=== PATIENT | female | born 1985 | race Caucasian/White ===

== ENCOUNTER 2017-06-11 13:40 | Emergency (ER) | payer OTHER ==
[2017-06-11] MEDS ORDERED: DIAZEPAM 5 MG/ML 1 ML SYR IVP ONE (14:13)
[2017-06-11] MEDS ORDERED: LIDOCAINE 4%/MENTHOL 1% PATCH TD ONE (14:13)
[2017-06-11] MEDS ORDERED: KETOROLAC 15 MG/1 ML SDV IVP ONE (14:13)
[2017-06-11] MEDS ORDERED: DEXAMETHASONE 4 MG/ML VIAL IVP ONE (14:13)
--- NOTE | 2017-06-11 14:15 | EDPHY ---
H & P Stated Complaint: low back pain Time Seen by Provider: 06/11/17 13:54 HPI/ROS: CHIEF COMPLAINT: New low back pain, new radiculopathy HISTORY OF PRESENT ILLNESS: 31-year-old female with prior history of low back pain, L5-S1 herniation diagnosis several years ago, states that she has been feeling well overall, has been asymptomatic. Yesterday however she was walking and stepped on incongruent the sidewalk and felt immediate midline lumbar pain with new onset bilateral lower extremity radiculopathy. No incontinence. No retention. No saddle anesthesia no footdrop. No direct trauma or fall. REVIEW OF SYSTEMS: A ten point review of systems was performed and is negative with the exception of the items mentioned in the HPI PAST MEDICAL & SURGICAL HISTORY: Prior low back pain history SOCIAL HISTORY:Student PHYSICAL EXAM (Prior to examination, patient consented to physical exam, hands were washed and my usual and customary physical exam procedures followed) 1) GENERAL: Well-developed, well-nourished, alert and oriented. Moving in a left lateral recumbent position. Appears to be in no acute distress if she is not moving however appears to be quite comfortable she is asked to move. 2) HEAD: Normocephalic, atraumatic 3) HEENT: Pupils equal, round, reactive to light bilaterally. Sclera anicteric. Nasopharynx, oropharynx, clear, no lesions. 4) NECK: Full range of motion, no meningeal signs. 5) LUNGS: Clear auscultation bilaterally, no wheezes, no rhonchi, no retractions. 6) HEART: Regular rate and rhythm, no murmur, no heave, no gallop. 7) ABDOMEN: No guarding, no rebound, no focal tenderness, negative McBurney's, negative Gray's, negative Rovsing's, negative peritoneal sign, 8) MUSCULOSKELETAL: Moving all extremities, no focal areas of tenderness, no obvious trauma. No peripheral edema or discoloration. 9) BACK:. No CVA tenderness, no midline vertebral tenderness, no fluctuance, no step-off, no obvious trauma, no visual or palpable abnormality. Patella, Achilles reflexes intact to bilateral strength 5/5 . positive straight leg lift test bilaterally. 10) SKIN: No rash, no petechiae. 11) NEURO: Awake, alert, and oriented to person, place and time. Answers questions appropriately. There were no obvious focal neurologic abnormalities. No cerebellar dysfunction. Normal steady gait. Upper and lower extremities bilaterally with strength 5 / 5, reflexes 2+.. DIFFERENTIAL DIAGNOSIS: In no particular order, including but not limited to, fracture, sprain/strain, cauda equina, spinal infectious etiology. - Personal History LMP (Females 10-55): Over 28 Days Ago Current Tetanus/Diphtheria Vaccine: Unsure Current Tetanus Diphtheria and Acellular Pertussis (TDAP): Unsure - Medical/Surgical History Hx Asthma: No Hx Chronic Respiratory Disease: No Hx Diabetes: No Hx Cardiac Disease: No Hx Renal Disease: No Hx Cirrhosis: No Hx Alcoholism: No Hx HIV/AIDS: No Hx Splenectomy or Spleen Trauma: No Other PMH: L5-S1 disc injury, HTN, - Social History Smoking Status: Never smoked Constitutional: Initial Vital Signs Temperature (C) 37 C 06/11/17 13:45 Heart Rate 67 06/11/17 13:45 Respiratory Rate 16 06/11/17 13:45 Blood Pressure 123/99 H 06/11/17 13:45 O2 Sat (%) 96 06/11/17 13:45 O2 Delivery Mode Room Air Allergies/Adverse Reactions: amoxicillin Allergy (Verified 06/11/17 13:44) Home Medications: Medication Instructions Recorded Aleve 06/11/17 Concerta 06/11/17 Cyclobenzaprine [Flexeril 10 MG 10 mg PO TID #15 tab 06/11/17 (RX)] Metaxalone 06/11/17 methylPREDNISolone [Medrol Dose 4 mg PO DAILY #1 ea 06/11/17 Dennys] Medical Decision Making ED Course/Re-evaluation: 2:15 p.m.: I discussed case with secondary supervising physician Dr. James Ulloa in the ER. Patient has a new low back pain, new bilateral lower extremity radiculopathy. Recommended MRI which she is agreeable with. 3:26 p.m.: The patient was re-evaluated with serial examinations. I discussed her imaging results with her. She has been given analgesia in the ER states that she is feeling significant improvement. At this time I do not think that hospitalization is indicated. I do not think that emergent neurosurgical consultation is indicated. She has a pre-existing relationship with [facility]. I recommend follow up with her physician at [facility]. Plan will be discharge home. Usual and customary back pain precautions instructions provided. - Data Points Medications Given: Discontinued Medications Dexamethasone (Decadron Injection) 8 mg IVP EDNOW ONE Stop: 06/11/17 14:14 Last Admin: 06/11/17 14:27 Dose: 8 mg Diazepam (Valium) 5 mg IVP EDNOW ONE Stop: 06/11/17 14:14 Last Admin: 06/11/17 14:27 Dose: 5 mg Ketorolac Tromethamine (Toradol) 15 mg IVP EDNOW ONE Stop: 06/11/17 14:14 Last Admin: 06/11/17 14:27 Dose: 15 mg Miscellaneous Medication (Icy Hot Lidocaine/Menthol 4%/1% Patch) 1 patch TD EDNOW ONE Stop: 06/11/17 14:14 Last Admin: 06/11/17 14:27 Dose: 1 patch Departure - Departure Disposition: Home, Routine, Self-Care Clinical Impression: Acute low back pain Condition: Good Instructions: Cyclobenzaprine (By mouth), Methylprednisolone (By mouth), Low Back Strain (ED) Additional Instructions: Seek medical attention if you develop new or worsening pain, if you develop bladder or bowel dysfunction, numbness around your perineum, foot drop, or any other symptoms that concern you. Referrals: Jose Francisco Coleman [Outside] - 2-3 days, call for appt. Stand Alone Forms: School Excuse, Work Excuse Prescriptions: Cyclobenzaprine [Flexeril 10 MG (RX)] 10 mg PO TID #15 tab methylPREDNISolone [Medrol Dose Dennys] 4 mg PO DAILY #1 ea
[2017-06-11 16:06] VITALS: BP 123/79; PULSE 97; RESP 18; TEMP 98.1; O2SAT 97
[2017-06-11] MEDS ORDERED: PATCH REMOVAL 1 EA PATCH TD SCH (21:00)
== END 2017-06-11 16:06 | disposition home or self-care (01) ==
DX: M54.5 Low back pain (principal); I10 Essential (primary) hypertension
CPT/HCPCS: 96374; J1100; J1885; J3360

== ENCOUNTER 2018-05-27 18:20 | Emergency (ER) | payer OTHER ==
[2018-05-27] MEDS ORDERED: ceFAZolin 2 GM/DEXTROSE 100 ML IV ONE (19:45)
[2018-05-27] MEDS ORDERED: SULFAMETHOX/TMP 800/160 MG 1 TAB PO ONE (19:49)
--- NOTE | 2018-05-27 20:24 | EDPHY ---
H & P Time Seen by Provider: 05/27/18 19:21 HPI/ROS: CHIEF COMPLAINT: Left thumb swelling and arm streaking HISTORY OF PRESENT ILLNESS: Patient had some pain in her thumb last Thursday and then Thursday night it started swelling and she had increasing pain. Yesterday she was at urgent care was started on Keflex and took her 1st dose last night but over the last 24 hr she has had a red streak going up her arm into her armpit and feeling achy all over. She felt like she might be hopped no definite documented fever. She feels that her left thumb is more swollen. REVIEW OF SYSTEMS: Eye: no change in vision ENT: no sore throat Cardiac: no chest pain or syncope Pulmonary: no cough or SOB Abdomen: no vomiting, diarrhea, abdominal pain Musculoskeletal: HPI Skin: Left thumb redness and red streak going up her left arm to her armpit Neuro: no headache Constitutional: HPI : no urinary symptoms A comprehensive 10 point review of systems is otherwise negative aside from elements mentioned in the history of present illness. PAST MEDICAL HISTORY: Lower back injury, hypertension, shingles. Not diabetic. Social history: Nonsmoker General Appearance: Alert and conversant, cooperative. Eyes: No scleral icterus. ENT, Mouth: Normal mucous membranes. Respiratory: Normal respiratory effort, breath sounds equal, lungs are clear to auscultation. Cardiovascular: Regular rate and rhythm. Gastrointestinal: Abdomen is soft and non tender. Neurological: Alert ambulatory. Skin: Patient has a red streak going up her left arm from her thumb to her armpit. Although it is visible it is not tender to palpation. She has good range of motion of her shoulder elbow and wrist. Good range of motion of her thumb. She has swelling and redness just proximal to the eponychial fold on thumb with fluctuance. Musculoskeletal: Normal range of motion of all fingers of the left hand including the thumb with full flexion and extension. Psychiatric: Not agitated. Emergency Department course/MDM: Patient presents with paronychia and some streaking but does not looks septic or systemically toxic. She has a normal immune system. She is not febrile in the ER. Procedure: Abscess drainage. The patient's abscess was located on the left thumb just proximal to the eponychial fold. I obtained verbal consent from the patient to drain the abscess who was informed about the possibility of bleeding and pain. The area was prepped and draped in the usual sterile fashion, with 1% lidocaine digital block without epinephrine used for local anesthesia. The abscess was incised with a #11 scalpel just proximal to the eponychial fold, and a small amount of purulent drainage was expressed. The patient tolerated the procedure well. The procedure was performed by myself. IV Ancef 2 g, CBC ordered. Will add Bactrim for staph coverage. Plan for hand surgery follow-up tomorrow. Discussed with Dr. Simpson 2040, who agrees with ED management as described above and will see the patient tomorrow afternoon in the clinic. Patient states she is comfortable with the plan, will return if worse. Smoking Status: Never smoked Constitutional: Initial Vital Signs Temperature (C) 37.5 C 05/27/18 18:28 Heart Rate 86 05/27/18 18:28 Respiratory Rate 16 05/27/18 18:28 Blood Pressure 126/91 H 05/27/18 18:28 O2 Sat (%) 96 05/27/18 18:28 O2 Delivery Mode Nasal Cannula Allergies/Adverse Reactions: amoxicillin Allergy (Verified 05/27/18 18:27) Home Medications: Medication Instructions Recorded Concerta 06/11/17 Keflex 05/27/18 Sulfamethox/Tmp 800/160 mg 1 tab PO BID@1000,2200 #20 tab 05/27/18 [Bactrim Ds] MDM/Departure - MDM Medications Given: Discontinued Medications Hydrocodone Bitart/Acetaminophen (Dickey 5/325mg Prepack#6) 1 btl TAKEHOME EDNOW ONE Stop: 05/27/18 20:53 Last Admin: 05/27/18 21:03 Dose: 1 btl Cefazolin Sodium/Dextrose (Ancef) 100 mls @ 200 mls/hr IV EDNOW ONE PRN Reason: Protocol Stop: 05/27/18 20:14 Last Admin: 05/27/18 20:05 Dose: 100 mls Trimethoprim/Sulfamethoxazole (Bactrim Ds) 1 ea PO EDNOW ONE PRN Reason: Protocol Stop: 05/27/18 19:50 Last Admin: 05/27/18 20:24 Dose: 1 ea Trimethoprim/Sulfamethoxazole (Bactrim Ds Prepack#2) 1 btl TAKEHOME EDNOW ONE Stop: 05/27/18 20:53 Last Admin: 05/27/18 21:02 Dose: 1 btl - Depart Disposition: Home, Routine, Self-Care Clinical Impression: Paronychia of thumb, left Condition: Good Instructions: Sulfamethoxazole/Trimethoprim (By mouth), Hydrocodone/ Acetaminophen (By mouth), Paronychia (ED) Additional Instructions: Continue Keflex; start Bactrim as prescribed. Prescriptions: Sulfamethox/Tmp 800/160 mg [Bactrim Ds] 1 tab PO BID@1000,2200 #20 tab Referrals: Kalie Ledezma MD [Primary Care Provider] - As per Instructions Ham Simpson MD [Medical Doctor] - As per Instructions (see Dr. Simpson tomorrow afternoon in the office for recheck (hand specialist))
[2018-05-27 20:39] LABS: PLATELET COUNT 263 10^3/uL (150-400)
[2018-05-27] MEDS ORDERED: HYDROCOD/APAP 5/325 PREPACK#6 BTL TAKEHOME ONE (20:52)
[2018-05-27] MEDS ORDERED: SULFAMET/TMP DS PREPACK#2 BTL TAKEHOME ONE (20:52)
[2018-05-27 21:08] VITALS: BP 120/87
== END 2018-05-27 21:05 | disposition home or self-care (01) ==
PROC: 0H9GXZZ Drainage of Left Hand Skin, External Approach (ICD-10-PCS; principal; 2018-05-27)
DX: L03.012 Cellulitis of left finger (principal); I10 Essential (primary) hypertension
CPT/HCPCS: 96374; J0690